=== PATIENT | male | born 1985 | race Caucasian/White ===

== ENCOUNTER 2018-06-06 03:59 | Inpatient (IN) | payer OTHER ==
[2018-06-06] VITALS (21 sets, daily range): BP systolic 81–112; BP diastolic 44–64
[~2018-06-06] VITALS: Ht 177.8 cm; Wt 91.2 kg
[2018-06-06] MEDS: IV NORMAL SALINE 1000ML BAG 1,000 ML IV SCH ×2 (05:00→20:46)
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
--- NOTE | 2018-06-06 07:20 | PDOC ---
Provider Note Provider Note [id number] acute resp fail rib fx encephalopathy alcohol intoxication see orders JANN QUINTANA MD Jun 06, 2018 07:20
[2018-06-06] MEDS: PROPOFOL 100 ML IV PRN ×3 (07:43→19:36)
[2018-06-06] MEDS: MIDAZOLAM 100mg/100ml NS BAG 100 ML IV PRN ×2 (07:54→17:33)
[2018-06-06 08:08] LABS: BASE EXCESS ABG 3 mmol/L (-3-3); HCO3 ABG 28 mmol/L (21-28); PCO2 ABG 47 mmHg (35-46); PO2 ABG 83 mmHg (85-108); SAT O2 ABG 96 % (92-99)
[2018-06-06 08:29] LABS: FIO2 ABG 40
[2018-06-06 08:38] LABS: BASO # 0.1 x10^3/uL (0.0-0.2); BASO % 1 % (0-3); EOS # 0.1 x10^3/uL (0.0-0.7); EOS % 1 % (0-3); HEMATOCRIT 39.9 % (39.0-53.0); HEMOGLOBIN 13.4 g/dL (13.0-17.5); LYMPH # 2.6 x10^3/uL (1.0-4.8); LYMPH % 35 % (24-48); MEAN CORPUSCULAR HEMOGLOBIN 30 pg (25-35); MEAN CORPUSCULAR HGB CONC 34 g/dL (31-37); MEAN CORPUSCULAR VOLUME 90 fL (79-100); MONO # 0.5 x10^3/uL (0.0-1.1); MONO % 7 % (0-9); NEUT # 4.3 x10^3uL (1.8-7.7); NEUT % 56 % (31-73); PLATELET COUNT 201 x10^3/uL (140-400); RED BLOOD COUNT 4.45 x10^6/uL (4.30-5.70); RED CELL DISTRIBUTION WIDTH 13.2 % (11.5-14.5); WHITE BLOOD COUNT 7.6 x10^3/uL (4.0-11.0)
[2018-06-06 08:53] LABS: CALCIUM 8.7 mg/dL (8.5-10.1); CREATININE 0.8 mg/dL (0.7-1.3); POTASSIUM 3.8 mmol/L (3.5-5.1)
[2018-06-06] MEDS: CHLORHEXIDINE 0.12% 15 ML MOUTHWASH. MM SCH ×2 (09:00→21:00)
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
--- NOTE | 2018-06-06 09:27 | RAD ---
EXAM: Chest, single view. HISTORY: Endotracheal tube placement. COMPARISON: 06/05/2018. FINDINGS: A frontal view of the chest is obtained. There is an endotracheal tube within the mid trachea. There is a nasogastric tube within the stomach. There is no infiltrate, pleural effusion or pneumothorax. The heart is normal in size. IMPRESSION: 1. No acute pulmonary finding. 2. Nasogastric tube and endotracheal tube in expected position. Electronically signed by: Minerva Gillette MD (06/06/2018 9:24 AM) [facility]
[2018-06-06] MEDS: FAMOTIDINE 20 MG/2 ML VIAL IVP SCH ×2 (10:39→22:42)
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
[2018-06-07] VITALS (15 sets, daily range): BP systolic 87–137; BP diastolic 49–87
[2018-06-07] MEDS: PROPOFOL 100 ML IV PRN ×2 (02:17→05:44)
[2018-06-07 04:13] LABS: HEMATOCRIT 32.5 % (39.0-53.0); RED BLOOD COUNT 3.59 x10^6/uL (4.30-5.70); RED CELL DISTRIBUTION WIDTH 13.3 % (11.5-14.5)
[2018-06-07 04:51] LABS: ALBUMIN 2.6 g/dL (3.4-5.0); CALCIUM 7.8 mg/dL (8.5-10.1); CREATININE 0.6 mg/dL (0.7-1.3); GFR 156.1; POTASSIUM 3.4 mmol/L (3.5-5.1); TOTAL BILIRUBIN 0.6 mg/dL (0.2-1.0); TOTAL PROTEIN 5.1 g/dL (6.4-8.2)
[2018-06-07] MEDS: CHLORHEXIDINE 0.12% 15 ML MOUTHWASH. MM SCH (08:22)
[2018-06-07] MEDS: FAMOTIDINE 20 MG/2 ML VIAL IVP SCH ×2 (08:22→23:47)
[2018-06-07] MEDS: IV NORMAL SALINE 1000ML BAG 1,000 ML IV SCH ×2 (08:22→21:00)
[2018-06-07 09:16] LABS: BASE EXCESS ABG 1 mmol/L (-3-3); HCO3 ABG 25 mmol/L (21-28); PCO2 ABG 40 mmHg (35-46); PO2 ABG 201 mmHg (85-108); SAT O2 ABG 99 % (92-99)
[2018-06-07 09:17] LABS: FIO2 ABG 40
[2018-06-07 10:01] LABS: BASE EXCESS ABG -1 mmol/L (-3-3); HCO3 ABG 25 mmol/L (21-28); PCO2 ABG 43 mmHg (35-46); PO2 ABG 160 mmHg (85-108); SAT O2 ABG 99 % (92-99)
[2018-06-07 10:02] LABS: FIO2 ABG 40
--- NOTE | 2018-06-07 10:27 | PDOC ---
PULMONARY PROGRESS NOTES Subjective awake, on CPAP Vitals Vital Signs Date Time Temp Pulse Resp B/P (MAP) Pulse Ox O2 Delivery O2 Flow Rate FiO2 06/07/18 08:53 100 Ventilator 06/07/18 06:00 98.4 63 16 105/67 (80) 98.4 General: Alert, No acute distress Lungs: Clear Cardiovascular: S1 Abdomen: Soft Neuro Exam: Alert Extremities: Other (trace edema) Labs Laboratory Tests Test 06/06/18 08:00 06/06/18 08:13 06/07/18 03:40 06/07/18 08:55 O2 Saturation 96 % (92-99) 99 % (92-99) Arterial Blood pH 7.40 (7.35-7.45) 7.42 (7.35-7.45) Arterial Blood pCO2 at Patient Temp 47 mmHg (35-46) 40 mmHg (35-46) Arterial Blood pO2 at Patient Temp 83 mmHg (85-108) 201 mmHg (85-108) Arterial Blood HCO3 28 mmol/L (21-28) 25 mmol/L (21-28) Arterial Blood Base Excess 3 mmol/L (-3-3) 1 mmol/L (-3-3) FiO2 40 40 White Blood Count 7.6 x10^3/uL (4.0-11.0) 5.0 x10^3/uL (4.0-11.0) Red Blood Count 4.45 x10^6/uL (4.30-5.70) 3.59 x10^6/uL (4.30-5.70) Hemoglobin 13.4 g/dL (13.0-17.5) 11.0 g/dL (13.0-17.5) Hematocrit 39.9 % (39.0-53.0) 32.5 % (39.0-53.0) Mean Corpuscular Volume 90 fL (79-100) 91 fL (79-100) Mean Corpuscular Hemoglobin 30 pg (25-35) 31 pg (25-35) Mean Corpuscular Hemoglobin Concent 34 g/dL (31-37) 34 g/dL (31-37) Red Cell Distribution Width 13.2 % (11.5-14.5) 13.3 % (11.5-14.5) Platelet Count 201 x10^3/uL (140-400) 137 x10^3/uL (140-400) Neutrophils (%) (Auto) 56 % (31-73) Lymphocytes (%) (Auto) 35 % (24-48) Monocytes (%) (Auto) 7 % (0-9) Eosinophils (%) (Auto) 1 % (0-3) Basophils (%) (Auto) 1 % (0-3) Neutrophils # (Auto) 4.3 x10^3uL (1.8-7.7) Lymphocytes # (Auto) 2.6 x10^3/uL (1.0-4.8) Monocytes # (Auto) 0.5 x10^3/uL (0.0-1.1) Eosinophils # (Auto) 0.1 x10^3/uL (0.0-0.7) Basophils # (Auto) 0.1 x10^3/uL (0.0-0.2) Sodium Level 145 mmol/L (136-145) 144 mmol/L (136-145) Potassium Level 3.8 mmol/L (3.5-5.1) 3.4 mmol/L (3.5-5.1) Chloride Level 107 mmol/L (98-107) 109 mmol/L (98-107) Carbon Dioxide Level 29 mmol/L (21-32) 27 mmol/L (21-32) Anion Gap 9 (6-14) 8 (6-14) Blood Urea Nitrogen 8 mg/dL (8-26) 14 mg/dL (8-26) Creatinine 0.8 mg/dL (0.7-1.3) 0.6 mg/dL (0.7-1.3) Estimated GFR (Cockcroft-Gault) 112.0 156.1 Glucose Level 83 mg/dL (70-99) 83 mg/dL (70-99) Lactic Acid Level 1.8 mmol/L (0.4-2.0) Calcium Level 8.7 mg/dL (8.5-10.1) 7.8 mg/dL (8.5-10.1) BUN/Creatinine Ratio 23 (6-20) Total Bilirubin 0.6 mg/dL (0.2-1.0) Aspartate Amino Transf (AST/SGOT) 17 U/L (15-37) Alanine Aminotransferase (ALT/SGPT) 19 U/L (16-63) Alkaline Phosphatase 70 U/L (46-116) Total Protein 5.1 g/dL (6.4-8.2) Albumin 2.6 g/dL (3.4-5.0) Albumin/Globulin Ratio 1.0 (1.0-1.7) Ethyl Alcohol Level < 10 mg/dL (0-10) Test 06/07/18 09:50 O2 Saturation 99 % (92-99) Arterial Blood pH 7.37 (7.35-7.45) Arterial Blood pCO2 at Patient Temp 43 mmHg (35-46) Arterial Blood pO2 at Patient Temp 160 mmHg (85-108) Arterial Blood HCO3 25 mmol/L (21-28) Arterial Blood Base Excess -1 mmol/L (-3-3) FiO2 40 Laboratory Tests Test 06/07/18 03:40 06/07/18 08:55 06/07/18 09:50 White Blood Count 5.0 x10^3/uL (4.0-11.0) Red Blood Count 3.59 x10^6/uL (4.30-5.70) Hemoglobin 11.0 g/dL (13.0-17.5) Hematocrit 32.5 % (39.0-53.0) Mean Corpuscular Volume 91 fL (79-100) Mean Corpuscular Hemoglobin 31 pg (25-35) Mean Corpuscular Hemoglobin Concent 34 g/dL (31-37) Red Cell Distribution Width 13.3 % (11.5-14.5) Platelet Count 137 x10^3/uL (140-400) Sodium Level 144 mmol/L (136-145) Potassium Level 3.4 mmol/L (3.5-5.1) Chloride Level 109 mmol/L (98-107) Carbon Dioxide Level 27 mmol/L (21-32) Anion Gap 8 (6-14) Blood Urea Nitrogen 14 mg/dL (8-26) Creatinine 0.6 mg/dL (0.7-1.3) Estimated GFR (Cockcroft-Gault) 156.1 BUN/Creatinine Ratio 23 (6-20) Glucose Level 83 mg/dL (70-99) Calcium Level 7.8 mg/dL (8.5-10.1) Total Bilirubin 0.6 mg/dL (0.2-1.0) Aspartate Amino Transf (AST/SGOT) 17 U/L (15-37) Alanine Aminotransferase (ALT/SGPT) 19 U/L (16-63) Alkaline Phosphatase 70 U/L (46-116) Total Protein 5.1 g/dL (6.4-8.2) Albumin 2.6 g/dL (3.4-5.0) Albumin/Globulin Ratio 1.0 (1.0-1.7) Ethyl Alcohol Level < 10 mg/dL (0-10) O2 Saturation 99 % (92-99) 99 % (92-99) Arterial Blood pH 7.42 (7.35-7.45) 7.37 (7.35-7.45) Arterial Blood pCO2 at Patient Temp 40 mmHg (35-46) 43 mmHg (35-46) Arterial Blood pO2 at Patient Temp 201 mmHg (85-108) 160 mmHg (85-108) Arterial Blood HCO3 25 mmol/L (21-28) 25 mmol/L (21-28) Arterial Blood Base Excess 1 mmol/L (-3-3) -1 mmol/L (-3-3) FiO2 40 40 Impression . . Acute respiratory failure. 2. Alcohol intoxication. 3. Encephalopathy, toxic. 4. Rib fracture.non displaced, left 11 th Plan . 1. Doing well on CPAP. 2. Will proceed with extubation 3. SCDs for DVT prophylaxis. 4. Pepcid for stress ulcer prophylaxis. 5. The findings and recommendations were discussed with RN. TRIXIE MONTENEGRO MD Jun 07, 2018 10:27
[2018-06-07] MEDS: DICLOFENAC SODIUM 1% TOPICAL GEL 100GM TUBE. TP SCH ×3 (10:28→23:48)
[2018-06-07] MEDS ORDERED: AMINO AC 3%/ELECTROLYTE/GLYCER 1,000 ML IV SCH (10:30)
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
[2018-06-07] MEDS ORDERED: fentaNYL PF VIAL 100 MCG/2 ML VIAL IV PRN (11:00)
[2018-06-07] MEDS: HYDROcodone/APAP 5/325MG 1 TAB TABLET PO PRN ×2 (13:19→19:33)
[2018-06-08 04:16] VITALS: BP 125/78
[2018-06-08 08:00] VITALS: BP 131/81
[2018-06-08] MEDS: FAMOTIDINE 20 MG/2 ML VIAL IVP SCH ×2 (08:18→22:25)
[2018-06-08] MEDS: DICLOFENAC SODIUM 1% TOPICAL GEL 100GM TUBE. TP SCH ×3 (08:28→22:25)
[2018-06-08] MEDS: HYDROcodone/APAP 5/325MG 1 TAB TABLET PO PRN ×3 (08:28→22:25)
--- NOTE | 2018-06-08 08:54 | NUR ---
IP: Pt is mrsa screen + requiring contact precautions.
[2018-06-08] MEDS: IV NORMAL SALINE 1000ML BAG 1,000 ML IV SCH (10:20)
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
[2018-06-08] MEDS ORDERED: POTASSIUM CHLORIDE 20 MEQ TABLET.ER. PO ONE (11:45)
--- NOTE | 2018-06-08 11:50 | PDOC ---
PULMONARY PROGRESS NOTES Subjective awake, doing well extubated 06/07 Vitals Vital Signs Date Time Temp Pulse Resp B/P (MAP) Pulse Ox O2 Delivery O2 Flow Rate FiO2 06/08/18 08:28 Room Air 06/08/18 08:00 98.2 94 18 131/81 (98) 99 98.2 06/07/18 20:00 3.0 General: Alert, No acute distress Lungs: Clear Cardiovascular: S1 Abdomen: Soft Neuro Exam: Alert Extremities: Other (trace edema) Labs Laboratory Tests Test 06/07/18 03:40 06/07/18 08:55 06/07/18 09:50 White Blood Count 5.0 x10^3/uL (4.0-11.0) Red Blood Count 3.59 x10^6/uL (4.30-5.70) Hemoglobin 11.0 g/dL (13.0-17.5) Hematocrit 32.5 % (39.0-53.0) Mean Corpuscular Volume 91 fL (79-100) Mean Corpuscular Hemoglobin 31 pg (25-35) Mean Corpuscular Hemoglobin Concent 34 g/dL (31-37) Red Cell Distribution Width 13.3 % (11.5-14.5) Platelet Count 137 x10^3/uL (140-400) Sodium Level 144 mmol/L (136-145) Potassium Level 3.4 mmol/L (3.5-5.1) Chloride Level 109 mmol/L (98-107) Carbon Dioxide Level 27 mmol/L (21-32) Anion Gap 8 (6-14) Blood Urea Nitrogen 14 mg/dL (8-26) Creatinine 0.6 mg/dL (0.7-1.3) Estimated GFR (Cockcroft-Gault) 156.1 BUN/Creatinine Ratio 23 (6-20) Glucose Level 83 mg/dL (70-99) Calcium Level 7.8 mg/dL (8.5-10.1) Total Bilirubin 0.6 mg/dL (0.2-1.0) Aspartate Amino Transf (AST/SGOT) 17 U/L (15-37) Alanine Aminotransferase (ALT/SGPT) 19 U/L (16-63) Alkaline Phosphatase 70 U/L (46-116) Total Protein 5.1 g/dL (6.4-8.2) Albumin 2.6 g/dL (3.4-5.0) Albumin/Globulin Ratio 1.0 (1.0-1.7) Ethyl Alcohol Level < 10 mg/dL (0-10) O2 Saturation 99 % (92-99) 99 % (92-99) Arterial Blood pH 7.42 (7.35-7.45) 7.37 (7.35-7.45) Arterial Blood pCO2 at Patient Temp 40 mmHg (35-46) 43 mmHg (35-46) Arterial Blood pO2 at Patient Temp 201 mmHg (85-108) 160 mmHg (85-108) Arterial Blood HCO3 25 mmol/L (21-28) 25 mmol/L (21-28) Arterial Blood Base Excess 1 mmol/L (-3-3) -1 mmol/L (-3-3) FiO2 40 40 Impression . . Acute respiratory failure. 2. Alcohol intoxication. 3. Encephalopathy, toxic. 4. Rib fracture.non displaced, left 11 th Plan . 1. Doing well on RA 2. on PO diet 3. SCDs for DVT prophylaxis. 4. Pepcid for stress ulcer prophylaxis. 5. will sign off TRIXIE MONTENEGRO MD Jun 08, 2018 11:50
[2018-06-08 12:00] VITALS: BP 127/90
--- NOTE | 2018-06-08 15:58 | RAD ---
Three-view right elbow dated 06/08/2018. No comparison available. CLINICAL INDICATION: Pain after injury. FINDINGS: 3 views right elbow show normal bony alignment. There is deformity of the radial head and neck consistent with old healed fracture. Moderate degenerative change of the elbow joint with multiple loose bodies at the anterior joint space. There is also some heterotopic bone anteriorly could be related to the coronoid process. No apparent acute fracture. No posterior fat pad elevation. IMPRESSION: 1. No apparent acute bony abnormality. 2. 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 Electronically signed by: Marcin Adkins MD (06/08/2018 3:56 PM) [id number]
[2018-06-08 16:00] VITALS: BP 129/87
--- NOTE | 2018-06-08 16:00 | RAD ---
Two-view chest dated 06/08/2018. Comparison made to 06/06/2018. CLINICAL INDICATION: Pain after injury. FINDINGS: PA and lateral views obtained. Heart and mediastinal contours are stable. Lungs are somewhat hyperinflated but otherwise clear. No consolidation or pleural effusion. No pneumothorax. IMPRESSION: No acute radiographic abnormality. Electronically signed by: Marcin Adkins MD (06/08/2018 3:57 PM) [facility]
[2018-06-08 19:00] VITALS: BP 109/77
[2018-06-08 22:32] VITALS: BP 113/81
[2018-06-09 03:00] VITALS: BP 107/70
[2018-06-09 06:31] VITALS: BP 100/65
[2018-06-09] MEDS: DICLOFENAC SODIUM 1% TOPICAL GEL 100GM TUBE. TP SCH (08:38)
[2018-06-09] MEDS: FAMOTIDINE 20 MG/2 ML VIAL IVP SCH (08:38)
[2018-06-09] MEDS: HYDROcodone/APAP 5/325MG 1 TAB TABLET PO PRN (09:12)
[2018-06-09 11:00] VITALS: BP 106/73
[2018-06-09 11:02] LABS: CALCIUM 8.7 mg/dL (8.5-10.1); CREATININE 0.8 mg/dL (0.7-1.3); POTASSIUM 3.6 mmol/L (3.5-5.1)
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
== END 2018-06-09 14:41 | disposition home or self-care (01) | DRG 208 ==
LOC: 1 WEST ICU 03:59 → EEVIPCON 03:59 → CVICU 06-08 08:25 → 5 SOUTH 06-08 17:48
PROVIDERS: ADMIT Internal Medicine; ATTEND Internal Medicine
PROC: 5A1945Z Respiratory Ventilation, 24-96 Consecutive Hours (ICD-10-PCS; principal; 2018-06-09)
PROC: 0BH17EZ Insertion of Endotracheal Airway into Trachea, Via Natural or Artificial Opening (ICD-10-PCS; 2018-06-09)
DX: J96.00 Acute respiratory failure, unspecified whether with hypoxia or hypercapnia (principal); G92 Toxic encephalopathy; S22.32XA Fracture of one rib, left side, initial encounter for closed fracture; F10.129 Alcohol abuse with intoxication, unspecified; F90.9 Attention-deficit hyperactivity disorder, unspecified type; S00.83XA Contusion of other part of head, initial encounter; X58.XXXA Exposure to other specified factors, initial encounter; Z88.0 Allergy status to penicillin; Y93.89 Activity, other specified; Y92.89 Other specified places as the place of occurrence of the external cause; Y99.8 Other external cause status
CPT/HCPCS: 36415; 36600; 71045; 71046; 73080; 80048; 80053; 82805; 83605; 85025; 85027; 87641; 94002; 94003; 94760; G0480; J2250; J2704; J3010; J3490; J7030